=== PATIENT | male | born 1940 | race Caucasian/White ===

== ENCOUNTER 2019-05-15 18:42 | Emergency (ER) | payer OTHER ==
[~2019-05-15] VITALS: Ht 170.2 cm; Wt 90.7 kg
[~2019-05-15 18:42] MED LIST: ASPIR 8181 MG PO; HYDROCODON-ACE1 EAC7 PO; INDAPAMIDE2.5 MG PO; LASIX 20 MG TAB20 MG PO; LIPITOR 20 MG T20 M1 PO; LISINOPRIL20 MG PO; OSTEO BI-FLEX1 EAC1 PO; SINGULAIR 10 MG10 M1 PO; VITAMIN D 5050000 I1 PO; VITAMIN D2000 UNIT PO; ZOCOR20 MG PO
[2019-05-15 20:02] LABS: ABSOLUTE NEUTROPHILS 9.5 thou/uL (1.4-8.2); BASOPHILS 0.2 % (0.0-2.0); EOSINOPHILS 1.1 % (0.0-3.0); HEMOGLOBIN 14.7 gm/dL (14.0-18.0); LYMPHOCYTES 2.2 % (24.0-44.0); MCH 31.7 pg (26.0-34.0); MCHC 34.2 g/dL (28.0-37.0); MCV 92.8 fL (80.0-100.0); MONOCYTES 4.1 % (1.0-8.0); PLATELET COUNT 195 thou/uL (150-400); POLYS 92.4 % (36.0-66.0); RBC 4.64 mil/uL (4.50-6.00); RDW 12.9 % (10.5-14.5); WBC 10.3 thou/uL (4.0-11.0)
[2019-05-15 20:13] LABS: ANION GAP 11 mmol/L (7-16); BUN 21 mg/dL (7-18); CALCIUM 9.9 mg/dL (8.5-10.1); CHLORIDE 100 mmol/L (98-107); CO2 26 mmol/L (21-32); CREATININE 1.4 mg/dL (0.7-1.3); GLUCOSE 137 mg/dL (74-106); POTASSIUM 3.7 mmol/L (3.5-5.1); SODIUM 137 mmol/L (136-145)
[2019-05-15 20:23] LABS: SGOT 19 U/L (15-37); SGPT 22 U/L (30-65); TOTAL BILIRUBIN 0.9 mg/dL (<0.1-1.0); TOTAL PROTEIN 7.5 g/dL (6.4-8.2); TROPONIN-I <0.06 ng/mL (<0.06)
[2019-05-15] MEDS ORDERED: PHENERGAN 25 MG25 M1 PO (21:59)
[2019-05-15 23:17] VITALS: BP 97/43
--- NOTE | 2019-05-17 12:52 | EKG ---
[address] [place] [address] ELECTROCARDIOGRAM REPORT Name: RODYELHAMMELISA ROMO Room #: DEP JARED Coyne#: [id number] Admission: 05/15/19 Attend Phys: Discharge: 05/15/19 Date of : 44 Report #: [id number] THIS REPORT FOR: //name// [facility] ED Test Date: 2019-05-15 Test Time: 18:55:25 Pat Name: ELHAM FINE Department: Room: Gender: M [employer]: kf : [id number] Requested By: Bert Carlton Order Number: [id number] MD: Van Jung Measurements Intervals [place] Rate: 109 P: 49 TX: 143 QRS: -11 QRSD: 93 T: 15 QT: 360 QTc: 485 Interpretive Statements Sinus tachycardia Abnormal R-wave progression, early transition Borderline prolonged QT interval Compared to ECG 08/31/2015 14:01:16 Atrial premature complex(es) no longer present Electronically Signed On 05-17-2019 12:51:57 [employer] by Van Jung [email or web address] <ELECTRONICALLY SIGNED> By: Van Jung MD, MERGED WITH [facility] 05/17/19 1251 1855 1855 Van Jung MD, FACC /EPI
== END 2019-05-15 23:06 | disposition home or self-care (01) ==
LOC: ER 18:42
PROVIDERS: Physician Assistant
DX: K52.9 Noninfective gastroenteritis and colitis, unspecified (principal); R11.2 Nausea with vomiting, unspecified; R55 Syncope and collapse; R10.13 Epigastric pain; I10 Essential (primary) hypertension; E11.9 Type 2 diabetes mellitus without complications; Z98.890 Other specified postprocedural states; Z79.899 Other long term (current) drug therapy

== ENCOUNTER 2019-12-23 12:54 | Emergency (ER) | payer OTHER ==
[~2019-12-23] VITALS: Ht 170.2 cm; Wt 90.7 kg
[~2019-12-23 12:54] MED LIST changes: +PHENERGAN 25 MG25 M1 PO
[2019-12-23 14:57] VITALS: BP 132/71
== END 2019-12-23 14:57 | disposition home or self-care (01) ==
LOC: ER 12:54
DX: S61.217A Laceration without foreign body of left little finger without damage to nail, initial encounter (principal); I10 Essential (primary) hypertension; Z79.899 Other long term (current) drug therapy; W26.8XXA Contact with other sharp object(s), not elsewhere classified, initial encounter; Y93.89 Activity, other specified; Y92.89 Other specified places as the place of occurrence of the external cause; Y99.8 Other external cause status